=== PATIENT | male | born 1995 | race Caucasian/White ===

== ENCOUNTER 2023-04-24 12:28 | Emergency (ER) | payer SELFPAY ==
[2023-04-24 12:37] VITALS: BP 128/65; PULSE 70; RESP 18; TEMP 97.6; BMI 24.3
[2023-04-24 13:06] LABS: BASO % 0.7 % (0-2.0); EOS % 5.7 % (0-4.5); HEMATOCRIT 45.6 % (35.4-49); HEMOGLOBIN 15.9 GM/dL (11.7-16.9); LYMPH % 17.1 % (8-40); MCH 32.1 pg (25.7-33.7); MCHC 34.8 g/dl (32.0-35.9); MEAN CELL VOLUME 92.2 fl (80-96); MEAN PLT VOLUME 8.5 fl (7.5-11.1); MONO % 5.4 % (3.8-10.2); NEUT % 71.1 % (42.8-82.8); PLATELET COUNT 321 10^3/uL (134-434); RBC 4.94 M/mm3 (4.00-5.60); RDW 12.1 % (11.9-15.9); WHITE BLOOD COUNT 10.1 K/mm3 (4.0-10.0)
[2023-04-24] MEDS ORDERED: IBUPROFEN 600 MG TABLET (FP) PO ONE ×2 (13:23→13:25)
[2023-04-24] MEDS ORDERED: SULFAMETHOXAZOLE/TRIMETHOPRIM 800MG/160MG D.S. TABLET PO ONE (13:23)
[2023-04-24 13:24] LABS: POTASSIUM 4.3 mmol/L (3.5-5.1)
[2023-04-24] MEDS ORDERED: SULFAMETHOXAZOLE/TRIMETHOPRIM 800MG/160MG D.S. TABLET ONE (13:25)
[2023-04-24 13:26] LABS: BLOOD UREA NITROGEN 24.5 mg/dL (7-18); CALCIUM 8.8 mg/dL (8.5-10.1)
[2023-04-24 13:29] LABS: CREATININE 1.2 mg/dL (0.55-1.3)
== END 2023-04-24 13:54 | disposition home or self-care (01) ==
LOC: JERFT 12:28
DX: S90.861A Insect bite (nonvenomous), right foot, initial encounter (principal); R22.41 Localized swelling, mass and lump, right lower limb; L03.116 Cellulitis of left lower limb; W57.XXXA Bitten or stung by nonvenomous insect and other nonvenomous arthropods, initial encounter
CPT/HCPCS: 36415; 80048; 85025; 87040; 99283-25